=== PATIENT | male | born 1965 | race Native Hawaiian/Other Pacific Islander ===

== ENCOUNTER 2017-01-21 16:24 | Outpatient (CLI) | payer OTHER | END 2017-01-21 19:03 | disposition home or self-care (01) | LOC: RAD 16:24 | DX: R10.84 Generalized abdominal pain (principal) | CPT/HCPCS: 74022 ==

== ENCOUNTER 2020-05-04 12:20 | Outpatient (CLI) | payer OTHER | END 2020-05-04 19:37 | disposition home or self-care (01) | LOC: RAD 12:20 | PROVIDERS: ATTEND Physician Assistant | DX: M79.671 Pain in right foot (principal) ==

== ENCOUNTER 2020-06-01 18:36 | Outpatient (CLI) | payer OTHER | END 2020-06-01 19:29 | disposition home or self-care (01) | LOC: RAD 18:36 | PROVIDERS: ATTEND Physician Assistant | DX: M79.671 Pain in right foot (principal) ==

== ENCOUNTER 2021-10-19 17:53 | Emergency (ER) | payer OTHER ==
[~2021-10-19] VITALS: Ht 172.7 cm; Wt 90.7 kg
[2021-10-19 17:53] VITALS: TEMP 96.8
[2021-10-19 18:24] LABS: PLATELET COUNT 364 K/uL (142-355)
[2021-10-19 18:25] LABS: POTASSIUM 3.3 mmol/L (3.6-5.2)
[2021-10-19 18:45] VITALS: BP 155/87
== END 2021-10-19 18:44 | disposition short-term general hospital (02) ==
LOC: ED 17:53
PROVIDERS: Emergency Medicine
DX: I21.19 ST elevation (STEMI) myocardial infarction involving other coronary artery of inferior wall (principal)
CPT/HCPCS: 36415; 80053; 83880; 84484; 85027; 85610; 85730; 93005; 96365; 96375; 99285; J2270; J2405; J3490